=== PATIENT | male | born 1965 | race Caucasian/White ===

== ENCOUNTER 2019-03-27 11:42 | Emergency (ER) | payer OTHER ==
--- NOTE | 2019-03-27 12:06 | Emergency Department Report ---
Chief Complaint: Urogenital-Male Stated Complaint: INFLAMATION IN PENIS/PAIN Time Seen by Provider: 03/27/19 12:01 - HPI History of Present Illness: This is a 54 y.o. male that presents with swollen penis since Saturday. Patient was seen by PCP on Saturday and given keflex and Motrin. He went back to PCP yesterday and told to f/u in ER. PMH DM & HTN Currently taking metformin, Motrin, lisinopril, Keflex, & nystatin cream - Exam Vital Signs: Vital Signs 03/27/19 11:55 Temperature 97.5 F L Pulse Rate 78 Respiratory 18 Rate Blood Pressure 169/90 O2 Sat by Pulse 100 Oximetry MSE screening note: Focused history and physical exam performed. Due to findings the following was ordered: UA & testicular doppler ED Disposition for MSE Condition: Stable
--- NOTE | 2019-03-27 12:48 | Ultrasound Report ---
ULTRASOUND SCROTAL INDICATION: Penile swelling. COMPARISON: None similar at this institution. FINDINGS: Longitudinal and transverse grayscale and color flow sonographic evaluation of the scrotum and its contents demonstrates normal testicular contour and echotexture bilaterally without suspicious intrinsic lesions. Preserved bilateral blood flow. Right testicle estimated at 5 x 2.4 x 4.2 cm while the left testicle is 4.6 x 2.1 x 3.8 cm. Small bilateral hydroceles incidentally seen. Right epididymis is 1.1 x 0.4 cm, image 17. Left epididymis estimated at 1.7 x 0.9 cm, image 31. No hypervascularity demonstrated. CONCLUSION: Small bilateral hydroceles noted without acute testicular sonographic abnormality, as described. Please correlate. Thank you for the opportunity to participate in this patient's care.
[2019-03-27 12:54] LABS: Mucus,Urine 1+ /HPF
[2019-03-27 12:58] LABS: Bilirubin,Urine Negative (Negative); Blood,Urine Negative (Negative); Color,Urine Yellow (Yellow); Urobilinogen,Urine < 2.0 mg/dL (<2.0)
[2019-03-27] MEDS ORDERED: THERMAZENE 50 GRAM TP ONE (13:11)
[2019-03-27] MEDS ORDERED: MARCAINE 0.25% INFILTRATI ONE (15:02)
[2019-03-27] MEDS ORDERED: XYLOCAINE TOPICAL 5% TP ONE (16:25)
[2019-03-27] MEDS ORDERED: XYLOCAINE 1% 20 mL INFILTRATI ONE (16:26)
[2019-03-27] MEDS ORDERED: DILAUDID IM ONE (16:26)
[2019-03-27] MEDS ORDERED: ROCEPHIN ONE (17:03)
--- NOTE | 2019-03-27 17:04 | Emergency Department Report ---
ED Male HPI - General Chief complaint: Urogenital-Male Stated complaint: INFLAMATION IN PENIS/PAIN Time Seen by Provider: 03/27/19 12:01 Source: patient, spanish interpreter Mode of arrival: Ambulatory Limitations: Language Barrier - History of Present Illness Initial comments: Patient is a 54-year-old male who is presenting with some pain to the distal penis. Patient states he has a great deal inflammation. Patient states 4 days ago he was showering and retracted his foreskin has been unable to pull the foreskin over the glans. Patient states the area around the glans is swollen considerably and the glans penis is swollen as well. Patient has been tried to pull pressure and tried to reduce his foreskin was unsuccessful. Patient was seen at outside facility was started on Keflex for possible balanitis which has not helped. States the pain is 6 out of 10 in severity has been constant. He denies any fevers chills nausea vomiting or diarrhea at this time. Patient still is able to urinate. - Related Data Allergies Allergy/AdvReac Type Severity Reaction Status Date / Time No Known Allergies Allergy Verified 03/27/19 11:55 ED Review of Systems ROS: Stated complaint: INFLAMATION IN PENIS/PAIN Other details as noted in HPI Comment: All other systems reviewed and negative ED Past Medical Hx - Past Medical History Previous Medical History?: No Hx Hypertension: Yes Hx Diabetes: Yes - Surgical History Past Surgical History?: No - Social History Smoking Status: Never Smoker Substance Use Type: None ED Physical Exam - General Limitations: Language Barrier General appearance: alert, in no apparent distress - Head Head exam: Present: atraumatic, normocephalic - Eye Eye exam: Present: normal appearance - ENT ENT exam: Present: mucous membranes moist - Neck Neck exam: Present: normal inspection - Respiratory Respiratory exam: Present: normal lung sounds bilaterally. Absent: respiratory distress - Cardiovascular Cardiovascular Exam: Present: regular rate, normal rhythm. Absent: systolic murmur, diastolic murmur, rubs, gallop - GI/Abdominal GI/Abdominal exam: Present: soft, normal bowel sounds - Rectal Rectal exam: Present: deferred - exam: Absent: normal inspection, testicular tenderness, scrotal swelling External exam: Present: erythema (the glans penis appears engorged with blood and does show some hyperemia. When pressure was held to the glans does deflate however refills almost immediately. Patient has swelling and edema to the foreskin which is unable to be reduced.) - Extremities Exam Extremities exam: Present: normal inspection - Back Exam Back exam: Present: normal inspection - Neurological Exam Neurological exam: Present: alert, oriented X3 - Psychiatric Psychiatric exam: Present: normal affect, normal mood - Skin Skin exam: Present: warm, dry, intact, normal color. Absent: rash ED Course Vital Signs 03/27/19 11:55 Temperature 97.5 F L Pulse Rate 78 Respiratory 18 Rate Blood Pressure 169/90 O2 Sat by Pulse 100 Oximetry ED Medical Decision Making - Medical Decision Making Patient has a paraphimosis. Patient's tried holding pressure between myself and him for approximately 5 minutes was unable to reduce the patient's foreskin. Graciously Dr. Sanford with urology has stated that he will come see the patient in emergent department. 1720: Dr. Sanford was able to see the patient in emergency department reduces paraphimosis. Patient will follow-up with him in clinic. Critical care attestation.: If time is entered above; I have spent that time in minutes in the direct care of this critically ill patient, excluding procedure time. ED Disposition Clinical Impression: Paraphimosis Disposition: DC-01 TO HOME OR SELFCARE Is pt being admited?: No Does the pt Need Aspirin: No Condition: Stable Instructions: Acute Paraphimosis (ED) Referrals: IDALMIS SANFORD MD [Staff Physician] - 3-5 Days Time of Disposition: 17:23
--- NOTE | 2019-03-27 17:22 | Consultation ---
History of Present Illness - Reason for Consult Consult date: 03/27/19 - History of Present Illness This is a 54 y.o. male that presents with swollen penis since Saturday. Patient was seen by PCP on Saturday and given keflex and Motrin. He went back to PCP yesterday and told to f/u in ER. MHx: diabetes habits none---non smoker/ no etoh shaniqua - small bilat hydroceles exam - paraphimosis testes normal under sterile conditions: 1%lidocaine cream 1% lidocaine solution injected into distal half of penis dorsal slit made, paraphimosis reuce, closed incision with 4-0 chromic a/p paraphimosis s/p dorsal slit today ok to remove dresing in 2 hours (ok to shower, no baths) gent 80mg im pt has keflex & motrin add norco - on chart f/u 1-2 wks Medications and Allergies Allergies Allergy/AdvReac Type Severity Reaction Status Date / Time No Known Allergies Allergy Verified 03/27/19 11:55 Exam - Constitutional Vitals: Temp Pulse Resp BP Pulse Ox 97.5 F L 78 18 169/90 100 03/27/19 11:55 03/27/19 11:55 03/27/19 11:55 03/27/19 11:55 03/27/19 11:55 Results - Labs Labs: Abnormal lab results 03/27/19 Range/Units 12:35 Ur Specific [place] 1.035 H (1.003-1.030)
[2019-03-27] MEDS ORDERED: ROCEPHIN IM ONE (17:26)
[2019-03-27] MEDS ORDERED: XYLOCAINE 1% MPF 5 mL INFILTRATI ONE (17:26)
--- NOTE | 2019-03-27 17:26 | Post Operative Note ---
Date of procedure: 03/27/19 Pre-op diagnosis: paraphomosis Post-op diagnosis: same Findings: viable but edema of forskin Procedure: DORSAL SLIT under sterile conditions: 1%lidocaine cream 1% lidocaine solution injected into distal half of penis dorsal slit made, paraphimosis reduced, closed incision with 4-0 chromic DRESSING & SILK TAPE APPLIED Anesthesia: BRETT Surgeon: IDALMIS WILCOX Estimated blood loss: minimal Pathology: none Condition: stable Disposition: other (procedure done in ER)
[2019-03-27 17:42] VITALS: BP 170/88
== END 2019-03-27 17:40 | disposition home or self-care (01) ==
LOC: ED 11:42 → EDBD 11:42 → ED 17:40
DX: N47.2 Paraphimosis (principal); I10 Essential (primary) hypertension; E11.9 Type 2 diabetes mellitus without complications
CPT/HCPCS: 81001; 93975; 96372; 99284; J0696; J1170